=== PATIENT | female | born 1980 | race Caucasian/White ===

== ENCOUNTER 2017-12-06 17:52 | Outpatient (REF) | payer OTHER, SELFPAY ==
[2017-12-06 23:25] LABS: ALT 20 U/L (12-78); AST 20 U/L (15-37); Albumin 3.4 g/dL (3.4-5.0); Alkaline Phosphatase 94 U/L (46-116); Anion Gap 5.6 mmol/L (3-11); BUN 10 mg/dL (7-18); Bilirubin, Total 0.4 mg/dL (0.2-1.0); CO2 26.4 mmol/L (21.0-32.0); CREATININE 0.65 mg/dL (0.55-1.02); Calcium 8.8 mg/dL (8.5-10.1); Chloride 105 mmol/L (98-107); Glucose 76 mg/dL (70-100); Potassium 4.1 mmol/L (3.5-5.1); Sodium 137 mmol/L (136-145); Total Protein 6.6 g/dL (6.4-8.2)
== END 2017-12-06 18:12 ==
LOC: NCHCN 17:52
PROVIDERS: PCP Nurse Practitioner; Visit Provider Nurse Practitioner
DX: M25.40 Effusion, unspecified joint (principal); E63.9 Nutritional deficiency, unspecified
CPT/HCPCS: 80053

== ENCOUNTER 2017-12-23 00:35 | Outpatient (CLI) | payer OTHER, SELFPAY ==
--- NOTE | 2017-12-23 08:10 | DI.RAD_ITS ---
SYMPTOM/DIAGNOSIS: LT KNEE PAIN, M25.562 LEFT KNEE: Three views. No priors. There are post surgical changes of a prior ACL repair. No acute fracture or dislocation is seen. The articular surfaces appear well maintained. The bones are intact. The soft tissues are unremarkable. IMPRESSION: Status post ACL repair. No acute abnormality.
== END 2017-12-23 00:55 ==
PROVIDERS: PCP Nurse Practitioner; Visit Provider Nurse Practitioner
DX: M25.562 Pain in left knee (principal); Z98.890 Other specified postprocedural states
CPT/HCPCS: 73562

== ENCOUNTER 2018-02-21 01:34 | Outpatient (CLI) | payer OTHER, SELFPAY ==
--- NOTE | 2018-02-21 09:28 | DI.RAD_ITS ---
SYMPTOMS/DIAGNOSIS: INFLAMMATORY ARTHRITIS, M19.90; PAIN IN BOTH HANDS, M79.641 ; PAIN IN BOTH WRISTS, M25.531, M25.532; PAIN IN BOTH FEET, M79.671, M79.672; BURSITIS IN BOTH HIPS, M70.71, M70.72;;, ACUTE BILATERAL LOW BACK PAIN WITHOUT SCIATICA, M54.5; BILATERAL HIP AND BACK PAIN ARTHRITIS SERIES: HANDS: The bony structures are normally mineralized. The joint spaces are intact. There are no periarticular erosions or soft tissue calcifications. There is no evidence of inflammatory joint disease. LEFT FOOT: No significant bony or joint abnormality is demonstrated and there are no findings to suggest inflammatory joint disease. Correlation with the patient's clinical status and appropriate laboratory tests is suggested. RIGHT FOOT: There is an ununited apophysis at the base of the 5th metatarsal. Minimal degenerative changes involving the interphalangeal joints are noted. The bony structures are normally mineralized. No acute abnormality is seen. SUMMARY: No specific findings to suggest inflammatory joint disease. SI JOINTS: Note is made of a partial lumbarization of L5. There are degenerative changes involving the SI joints, particularly on the right side. There is otherwise no evident bony abnormality involving the pelvis. The hips as visualized also appear intact. LUMBOSACRAL SPINE: The vertebral bodies are intact. Note is made of severe degenerative bony changes and a narrowed vacuum disc at L5-S1 and a grade 2 spondylolisthesis is identified at this level. The disc spaces appear otherwise intact. The posterior elements are intact. The sacrum and sacroiliac joints are intact save for mild SI joint degenerative changes. SUMMARY: There is a grade 2 L5 on S1 spondylolisthesis and narrowed vacuum disc at L5-S1. Please see the above discussion.
--- NOTE | 2018-02-21 09:45 | DI.RAD_ITS ---
SYMPTOMS/DIAGNOSIS: INFLAMMATORY ARTHRITIS, M19.90, BURSITIS OF BOTH HIPS, M70.71, M70.72, BILATERAL HIP AND BACK PAIN BOTH HIPS AND PELVIS: Three views were obtained. Minimal acetabular spurring noted bilaterally. Cartilaginous joint spaces are well maintained. No other significant bony abnormality seen. CONCLUSION: Mild DJD, both hips.
== END 2018-02-21 01:54 ==
PROVIDERS: PCP Nurse Practitioner; Visit Provider Internal Medicine
DX: M19.90 Unspecified osteoarthritis, unspecified site (principal); M79.641 Pain in right hand; M79.642 Pain in left hand; M25.531 Pain in right wrist; M25.532 Pain in left wrist; M79.671 Pain in right foot; M79.672 Pain in left foot; M70.71 Other bursitis of hip, right hip; M70.72 Other bursitis of hip, left hip; M54.5 Low back pain; M25.551 Pain in right hip; M25.552 Pain in left hip; M53.3 Sacrococcygeal disorders, not elsewhere classified; M43.17 Spondylolisthesis, lumbosacral region
CPT/HCPCS: 36415; 73521; 80053; 82306; 85652; 86147; 86200; 86706; 86803; 86812; 87116; 87340; 87491; 87591; 72110; 72202; 73120; 73630; 82595; 82607; 82728; 84443; 84550; 85025; 86140; 86160; 86162; 86431; 86618

== ENCOUNTER 2018-02-22 13:05 | Outpatient (CLI) | payer OTHER, SELFPAY ==
[2018-02-22 14:27] LABS: Abs Immature Grans 0.05 k/cumm (0.0-0.09); Absolute Lymphocyte Count 1.97 k/cumm (1.2-3.4); Absolute Monocyte Count 1.17 k/cumm (0.11-0.7); Basophils % 0.6; Eosinophils % 1.7; HCT 47.1 % (36.0-46.0); HGB 16.1 g/dL (12.0-15.5); Immature Grans % 0.5; Lymphocytes % 18.1; Mean Corp. HGB Concentration 34.2 g/dL (32.0-36.0); Mean Corpuscular Hemoglobin 33.2 pg (27.0-33.0); Mean Corpuscular Volume 97.1 fL (80-95); Mean Platelet Volume 11.1 fL (8.0-11.0); Monocytes % 10.8; Neutrophils % 68.3; Platelet Count 334 x1000/uL (130-400); RBC 4.85 m/cumm (4.00-5.20); RBC Distribution Width 13.1 % (11.7-14.6); White Blood Cell Count 10.87 k/cumm (4.4-10.8)
[2018-02-22 14:28] LABS: Absolute Basophil Count 0.07 k/cumm (0.0-0.2); Absolute Eosinophil Count 0.18 k/cumm (0.0-0.7); Absolute Neutrophil Count 7.42 k/cumm (1.2-6.7)
[2018-02-22 15:04] LABS: ESR 8 MM/HR (0-20)
[2018-02-22 15:53] LABS: ALT 21 U/L (12-78); AST 18 U/L (15-37); Alkaline Phosphatase 85 U/L (46-116); Anion Gap 9.4 mmol/L (3-11); BUN 6 mg/dL (7-18); Bilirubin, Total 0.5 mg/dL (0.2-1.0); C-Reactive Protein 1.16 mg/dL (0.0-0.3); CO2 27.6 mmol/L (21.0-32.0); CREATININE 0.67 mg/dL (0.55-1.02); Chloride 100 mmol/L (98-107); Glucose 78 mg/dL (70-100); Potassium 3.4 mmol/L (3.5-5.1); Sodium 137 mmol/L (136-145); Total Protein 6.2 g/dL (6.4-8.2); Uric Acid 5.8 mg/dL (2.6-6.0)
[2018-02-22 16:32] LABS: Ferritin 80 ng/mL (8-388); Vitamin B12 649 pg/mL (193-986)
[2018-02-23 05:07] LABS: Vitamin D 25 Total 12.2 ng/ml (30-100)
[2018-02-23 12:20] LABS: Hepatitis C Ab w Rflx HCV PCR Negative (NEGAT)
[2018-02-24 09:55] LABS: HBs Antibody, Quant <3.1 mIU/mL; Hepatitis B Surface Ab Negative
[2018-02-24 10:02] LABS: Hepatitis B Surface Ag Negative (NEGAT)
[2018-02-24 10:46] LABS: Rheumatoid Factor 33 IU/mL (<12.5)
[2018-02-24 10:52] LABS: C3 Complement 107 mg/dL (81-157); C4 Complement 20 mg/dL (13-39)
[2018-02-24 10:54] LABS: Cyclic Citrullinated Peptide >200.0 U/mL (<5.0)
[2018-02-24 11:28] LABS: Lyme Ab w Rflx to Lyme Confirm Negative
[2018-02-24 12:03] LABS: Complement, Total 53 U/mL (30 - 75)
[2018-02-24 14:49] LABS: Chlamydia Result Negative; GC Result Negative; Specimen Description URINE
[2018-02-24 16:41] LABS: Dilute Russell Viper Venom 34.6 secs (27.2-36.9); LA Cascade Summary SEE COMMENTS; Silica Clotting Time 42.6 sec (30.2-48.4)
[2018-02-24 16:56] LABS: HLA-B27 Result Negative
[2018-02-27 15:53] LABS: Cryoglobulin, S Negative %ppt (Negative)
== END 2018-02-22 13:25 ==
PROVIDERS: PCP Nurse Practitioner; Visit Provider Internal Medicine
DX: M25.562 Pain in left knee (principal); M19.90 Unspecified osteoarthritis, unspecified site; G89.29 Other chronic pain; M54.5 Low back pain; M79.641 Pain in right hand; M79.642 Pain in left hand; M79.671 Pain in right foot; M79.672 Pain in left foot; M25.531 Pain in right wrist; M25.532 Pain in left wrist; M70.71 Other bursitis of hip, right hip; M70.72 Other bursitis of hip, left hip
CPT/HCPCS: 36415; 80053; 82306; 85652; 86146; 86147; 86200; 86706; 86803; 86812; 87116; 87340; 87491; 87591; 82595; 82607; 82652; 82728; 84443; 84550; 85025; 86140; 86160; 86162; 86431; 86618

== ENCOUNTER 2018-02-27 01:33 | Outpatient (CLI) | payer OTHER, SELFPAY ==
--- NOTE | 2018-02-27 08:11 | DI.US_ITS ---
SYMPTOM/DIAGNOSIS: NAUSEA AND VOMITING, R11.2 ABDOMEN ULTRASOUND: The liver is normal in size and echogenicity. The gallbladder is unremarkable, without evidence of stones or wall thickening. The kidneys, spleen and aorta are unremarkable. The tail of the pancreas was not well visualized due to bowel gas. There is no ascites. IMPRESSION: Negative abdomen ultrasound.
== END 2018-02-27 01:53 ==
PROVIDERS: PCP Nurse Practitioner; Visit Provider Nurse Practitioner
DX: R11.2 Nausea with vomiting, unspecified (principal)
CPT/HCPCS: 76700

== ENCOUNTER 2018-03-16 16:36 | Outpatient (REF) | payer OTHER, SELFPAY ==
--- NOTE | 2018-03-16 13:45 | PAPFT_PTH ---
PATIENT: Carolina Cota LOC: [facility] U#:[id number] AGE/SX: 37/F ROOM: RE03/16/[address]: Shama Jacques : 1980 BED: DIS: 03/16/2018 SPEC #: [id number] RECD: 03/17/18 13:10 STATUS: KONRAD REQ #: [id number] JANICE: 03/16/18 13:[address]: Shama Jacques DEPT: [facility] Cytology RECD BY: Alanis Jacobs Tissues: 1 - CX/ENDOCX FOR PAP SMEARS Procedures: PAP THIN PREP/UVM Screening HPV DNA PROBE Comments: [id number]
== END 2018-03-16 16:56 ==
LOC: NCHCN 16:36
PROVIDERS: PCP Nurse Practitioner; Visit Provider Nurse Practitioner
DX: Z12.4 Encounter for screening for malignant neoplasm of cervix (principal); Z11.51 Encounter for screening for human papillomavirus (HPV)
CPT/HCPCS: 88142; 87624

== ENCOUNTER 2018-04-19 08:46 | Day surgery (SDC) | payer OTHER, SELFPAY ==
[2018-04-19 08:50] VITALS: BP 128/93; PULSE 104; RESP 16; TEMP 37; O2SAT 100
[2018-04-19] MEDS: Lactated Ringers 1,000 ML 30 ML IV (09:16)
--- NOTE | 2018-04-19 10:33 | BOWEL_PTH ---
PATIENT: Carolina Cota LOC: [facility] U#:[id number] AGE/SX: 37/F ROOM: RE04/19/[address]: Gonzalez Drake III : 1980 BED: DIS: 04/19/2018 SPEC #: [id number] RECD: 04/19/18 12:39 STATUS: KONRAD RELinda #: [id number] JANICE: 04/19/18 10:[address]: Gonzalez Drake III DEPT: Surgical Specimen RECD BY: Alanis Jacobs ENTERED: 04/19/18 12:41 SP TYPE: Bowel OTHR DR: Shama Jacques Tissues: 1 - STOMACH BIOPSY 2 - BIOPSY BOWEL 3 - ESOPHAGUS BIOPSY 4 - BIOPSY BOWEL Procedures: GROSS AND MICRO LEVEL 4 Comments: [id number]
--- NOTE | 2018-04-19 11:35 | ENDO_ITS ---
Date of service: 04/19/18 Time of Service: 11:35 Operative Note DATE OF PROCEDURE: 04/19/18 PRE-OP DIAGNOSIS: vomiting daily, A Screening colonoscopy POST-OP DIAGNOSIS: same PROCEDURE: upper EGD with biopsy, Colonoscopy with snare polypectomy SURGEON: Gonzalez Drake III ANESTHESIA: MAC PATHOLOGY: other (3 on upper, GE junction, pre-pyloris, 1st portion of duodenum), sigmoid polyp COMPLICATIONS: Other (c-scope wasnt able to advance past 70cm in the transverse colon and aborted case) Patient was transported to: PACU Patient's condition: stable Indications: persistant vomiting Procedure Description: After informed consent was obtained the patient was take to the procedure room and placed in a supine position. Monitors were applied and a time out was done. The patients name, date of , procedure type, allergies to medications and metal in their body was reviewed. A bite block was placed and the patient was sedated. Once sedated and comfortable the gastroscope was advanced through the oropharynx which was grossly normal into the esophagus. The proximal and mid-esophagus were clean. In the distal esophagus there was transition zone noted. The scope was advanced into the stomach and through the pylorus into the 3rd portion of the duodenum. The duodenum was entered and had a nodule biopsied. Biopsies were done x3. The scope was retracted back into the stomach and biopsies were done to rule out H. pylori. There were no ulcers. The scope was retroflexed. The cardia and fundus were noted to be normal. There was no hiatal hernia noted. The scope was retracted back into the esophagus and biopsies were done of the GE junction to rule out Roldan's. The Z line was regular. The scope was removed and the patient was woken up and taken back to the day surgery unit in stable condition. Follow up: 2weeks After informed consent was obtained the patient was taken to the procedure room and placed in a left decubitous position. Monitors were applied and a time out was done. The patients name, date of , procedure, allergies to medications and metal in their body was reviewed. The patient was then sedated. Once sedated and comfortable a rectal exam was done. External exam was normal. Internal exam revealed a normal sphincter tone and no palpable masses. The scope was then introduced and retrofelexed. No internal hemorrhoids were identified. The scope was then advanced with severe difficulty and could not advance past 70cm. The prep was adequate with alot of mucus. The scope was then slowly retracted over 6 minutes back into the rectum. A polyp was removed at sigmoid with snare. The scope was removed and the patient was woken up and taken back to Same day surgery in stable condition. The patient tolerated the procedure well and there were no immediate complications. Follow up: The patient should follow up in 2weeks unless she should develop changes in bowel habits or other new gastrointestinal complaints.
--- NOTE | 2018-04-19 11:42 | ROE_ITS ---
Date of service: 04/19/18 Time of Service: 11:35 Operative Note DATE OF PROCEDURE: 04/19/18 PRE-OP DIAGNOSIS: vomiting daily POST-OP DIAGNOSIS: same PROCEDURE: upper EGD, Colonoscopy SURGEON: Gonzalez Drake III ANESTHESIA: MAC PATHOLOGY: other (3 on upper, GE junction, pre-pyloris, 1st portion of duodenum) COMPLICATIONS: Other (c-scope wasnt able to advance past 70cm in the transverse colon and aborted case) Patient was transported to: PACU Patient's condition: stable Indications: persistant vomiting Procedure Description: After informed consent was obtained the patient was take to the procedure room and placed in a supine position. Monitors were applied and a time out was done. The patients name, date of , procedure type, allergies to medications and metal in their body was reviewed. A bite block was placed and the patient was sedated. Once sedated and comfortable the gastroscope was advanced through the oropharynx which was grossly normal into the esophagus. The proximal and mid-esophagus were clean. In the distal esophagus there was transition zone noted. The scope was advanced into the stomach and through the pylorus into the 3rd portion of the duodenum. The duodenum was noted and had a nodule biopsied. Biopsies were done x3. The scope was retracted back into the stomach and biopsies were done to rule out H. pylori. There were no ulcers. The scope was retroflexed. The cardia and fundus were noted to be normal. There was no hiatal hernia noted. The scope was retracted back into the esophagus and biopsies were done of the GE junction to rule out Roldan's. The Z line was regular. The scope was removed and the patient was woken up and taken back to [facility] in stable condition. Follow up: 2weeks After informed consent was obtained the patient was taken to the procedure room and placed in a left decubitous position. Monitors were applied and a time out was done. The patients name, date of , procedure, allergies to medications and metal in their body was reviewed. The patient was then sedated. Once sedated and comfortable a rectal exam was done. External exam was normal. Internal exam revealed a normal sphincter tone and no palpable masses. The scope was then introduced and retrofelexed. no internal hemorrhoids were identified. The scope was then advanced to the cecum severe difficulty and could not advance past 70cm. The prep was adequate with alot of mucus. The scope was then slowly retracted over 6 minutes back into the rectum. A polyp were removed at sigmoid. The scope was removed and the patient was woken up and taken back to Same day surgery in stable condition. The patient tolerated the procedure well and there were no immediate complications. Follow up: The patient should follow up in 2weeks unless they develop changes in bowel habits or other new gastrointestinal complaints.
--- NOTE | 2018-04-19 11:42 | W.PM.DSUDISC ---
Discharge Plan Disposition Patient Disposition: HOME Condition: Stable Discharge Details Reason For Visit: vomiting Attending Provider: Gonzalez Drake III Primary Care Provider: Shama Jacques Home Meds and New Rx's Prescriptions: Continued sertraline 50 MG tablet 50 mg PO DAILY RF: 0 cyproheptadine 4 MG tablet 4 mg PO BID Qty: 60 RF: 3 ondansetron HCl [Zofran] 4 mg Tablet 4 mg PO TID PRNRF: 0 Discharge Instructions Referrals: Gonzalez Drake III, [OSTEOPATHIC DOCTOR] - Activity:: Activity as Tolerated Diet:: As Tolerated Discharge Orders Discharge Orders: Discharge Order (Routine); Ordered 04/19/18 Ordered By: Gonzalez Drake III DS: Diagnosis Discharge Diagnosis (1) Nausea and vomiting: Status: Acute
[2018-04-19 12:15] VITALS: BP 111/78; PULSE 77; RESP 16; TEMP 36.5; O2SAT 100
== END 2018-04-19 12:55 | disposition home or self-care (01) ==
PROVIDERS: PCP Nurse Practitioner; Visit Provider Surgery
PROC: (CPT 45385; principal; 2018-04-19 10:15)
DX: R11.10 Vomiting, unspecified (principal); Z12.11 Encounter for screening for malignant neoplasm of colon; K31.89 Other diseases of stomach and duodenum; K29.80 Duodenitis without bleeding; K21.0 Gastro-esophageal reflux disease with esophagitis; D12.5 Benign neoplasm of sigmoid colon; R19.4 Change in bowel habit
CPT/HCPCS: 45385; 43239; 81025; 88305; J2250; J3010

== ENCOUNTER 2018-05-10 17:39 | Outpatient (REF) | payer OTHER, SELFPAY ==
[2018-05-12 14:39] LABS: ANA Interpretation Positive (NEGAT); ANA Titer Pattern 1:160 Speckled
== END 2018-05-10 17:59 ==
LOC: NCHCN 17:39
PROVIDERS: PCP Nurse Practitioner; Visit Provider Nurse Practitioner
DX: R21 Rash and other nonspecific skin eruption (principal)
CPT/HCPCS: 86038

== ENCOUNTER 2018-06-02 14:08 | Outpatient (CLI) | payer OTHER, SELFPAY ==
[2018-06-02 21:21] LABS: Abs Immature Grans 0.02 k/cumm (0.0-0.09); Absolute Basophil Count 0.02 k/cumm (0.0-0.2); Absolute Eosinophil Count 0.02 k/cumm (0.0-0.7); Absolute Lymphocyte Count 0.68 k/cumm (1.2-3.4); Absolute Monocyte Count 0.58 k/cumm (0.11-0.7); Absolute Neutrophil Count 8.91 k/cumm (1.2-6.7); Basophils % 0.2; Eosinophils % 0.2; HCT 48.5 % (36.0-46.0); HGB 15.6 g/dL (12.0-15.5); Immature Grans % 0.2; Lymphocytes % 6.6; Mean Corp. HGB Concentration 32.2 g/dL (32.0-36.0); Mean Corpuscular Hemoglobin 30.8 pg (27.0-33.0); Mean Corpuscular Volume 95.8 fL (80-95); Mean Platelet Volume 11.7 fL (8.0-11.0); Monocytes % 5.7; Neutrophils % 87.1; Platelet Count 288 x1000/uL (130-400); RBC 5.06 m/cumm (4.00-5.20); RBC Distribution Width 14.5 % (11.7-14.6); White Blood Cell Count 10.23 k/cumm (4.4-10.8)
[2018-06-02 21:24] LABS: ALT 18 U/L (12-78); AST 17 U/L (15-37); Albumin 3.1 g/dL (3.4-5.0); Alkaline Phosphatase 94 U/L (46-116); Anion Gap 9.2 mmol/L (3-11); BUN 10 mg/dL (7-18); Bilirubin, Total 0.3 mg/dL (0.2-1.0); CO2 27.8 mmol/L (21.0-32.0); CREATININE 0.72 mg/dL (0.55-1.02); Calcium 9.2 mg/dL (8.5-10.1); Chloride 104 mmol/L (98-107); Glucose 140 mg/dL (70-100); Potassium 4.5 mmol/L (3.5-5.1); Sodium 141 mmol/L (136-145); Total Protein 6.6 g/dL (6.4-8.2)
[2018-06-05 11:32] LABS: C3 Complement 87 mg/dL (81-157); C4 Complement 13 mg/dL (13-39)
[2018-06-05 12:09] LABS: Lyme Ab w Rflx to Lyme Confirm Negative; Syphilis Serology (RPR) Negative (Negative)
[2018-06-05 14:42] LABS: Beta 2 Glycoprotein 1 Ab IgA <9.4 U/mL
[2018-06-06 19:22] LABS: LA Cascade Summary SEE COMMENTS
== END 2018-06-02 14:28 ==
PROVIDERS: PCP Nurse Practitioner; Visit Provider Internal Medicine
DX: R11.2 Nausea with vomiting, unspecified (principal); M19.90 Unspecified osteoarthritis, unspecified site; A69.23 Arthritis due to Lyme disease; R76.8 Other specified abnormal immunological findings in serum
CPT/HCPCS: 36415; 80053; 86146; 86147; 87116; 85025; 86160; 86592; 86618

== ENCOUNTER 2018-06-12 17:11 | Outpatient (REF) | payer OTHER, SELFPAY ==
[2018-06-12 21:53] LABS: Folate 9.1 ng/mL (8.6-20.0)
== END 2018-06-12 17:31 ==
LOC: NCHCN 17:11
PROVIDERS: PCP Nurse Practitioner; Visit Provider Nurse Practitioner
DX: D75.89 Other specified diseases of blood and blood-forming organs (principal); N39.0 Urinary tract infection, site not specified
CPT/HCPCS: 87077; 82746; 87086; 87186

== ENCOUNTER 2018-06-13 00:43 | Outpatient (CLI) | payer OTHER, SELFPAY ==
--- NOTE | 2018-06-13 09:15 | DI.MRI_ITS ---
SYMPTOM/DIAGNOSIS: WORSENING HEADACHES, DIZZINESS, R51, BLURRED VISION BOTH EYES BRAIN MRI: Routine noncontrast examination was performed. There are no priors for comparison. The examination was conducted according to the usual protocol. Review of the multi planar sequences reveals no signal abnormality involving the infra/supratentorial portions of the brain. The ventricles are normal and a normal flow void is noted in the carotid vessels. SUMMARY: Normal Brain MRI.
== END 2018-06-13 01:03 ==
PROVIDERS: PCP Nurse Practitioner; Visit Provider Nurse Practitioner Adult Health
DX: R51 Headache (principal); H53.8 Other visual disturbances; R42 Dizziness and giddiness
CPT/HCPCS: 70551

== ENCOUNTER 2018-06-23 00:53 | Outpatient (CLI) | payer OTHER, SELFPAY ==
[2018-06-23] MEDS: Breeza Beverage 473 ML BTL PO (11:09)
[2018-06-23] MEDS: Omnipaque 350 MG/ML 50 ML BTL PO (11:09)
[2018-06-23] MEDS: Omnipaque 350 MG/ML 100 ML BTL IJ (11:10)
--- NOTE | 2018-06-23 11:10 | DI.CT_ITS ---
SYMPTOMS/DIAGNOSIS: NAUSEA, VOMITING, R11.2 CT SCAN OF THE ABDOMEN AND PELVIS: CT scan of the abdomen and pelvis was performed following the uneventful administration of intravenous and oral contrast material. Comparison abdominal ultrasound is 02/27/18. The visualized lung bases are clear. The liver is normal in size. There are a few small round hypodense lesions likely reflecting cysts. No suspicious hepatic masses are seen. The portal, superior mesenteric and splenic veins are patent. The gallbladder is negative. There is no biliary ductal dilatation. The pancreas, spleen and adrenal glands are unremarkable. The kidneys show normal and symmetric enhancement. No evidence of a solid renal mass or obstruction. The urinary bladder is decompressed but intact. The reproductive organs are unremarkable. The aorta is of normal caliber. No aneurysmal dilatation is seen. No significant abdominal or pelvic adenopathy, ascites or pneumoperitoneum is seen. Within the colon, there is diffuse low density bowel wall thickening. No significant diverticular disease is seen. No evidence of bowel obstruction. There is a question of mild thickening of loops of the proximal small bowel. A normal appendix is present. No air is seen in the wall of the colon or in the mesenteric venous system. There is L 5 spondylolysis and grade II spondylolisthesis of L 5 on S 1. Marked degenerative changes are seen at L 5 - S 1 with a vacuum disc, endplate osteophytes and sclerosis. Subchondral cystic changes are also noted. IMPRESSION: Marked diffuse pancolonic bowel wall thickening. Differential considerations include inflammatory or an infectious colitis. Ischemic colitis is considered less likely as is neoplasm. Further evaluation with barium enema and/or colonoscopy should be considered.
== END 2018-06-23 01:13 ==
PROVIDERS: PCP Nurse Practitioner; Visit Provider Nurse Practitioner
DX: R11.2 Nausea with vomiting, unspecified (principal); K63.89 Other specified diseases of intestine
CPT/HCPCS: 74177; J3490; Q9967

== ENCOUNTER 2018-07-03 16:50 | Outpatient (REF) | payer OTHER, SELFPAY ==
[2018-07-05 11:35] LABS: Campylobacter PCR SEE COMMENTS; Salmonella PCR SEE COMMENTS; Shiga Toxin PCR SEE COMMENTS; Shigella/Enteroinvasive Ecoli SEE COMMENTS
[2018-07-05 15:00] LABS: Helicobacter pylori Ag, Feces Negative (NEGAT)
== END 2018-07-03 17:10 ==
LOC: NCHCN 16:50
PROVIDERS: PCP Nurse Practitioner; Visit Provider Nurse Practitioner
DX: K59.8 Other specified functional intestinal disorders (principal)
CPT/HCPCS: 87329; 87338; 87505; 87324

== ENCOUNTER 2018-07-21 11:36 | Outpatient (REF) | payer OTHER, SELFPAY ==
[2018-07-21 20:30] LABS: Glucose 87 mg/dL (70-100)
[2018-07-24 12:42] LABS: IgA 151 mg/dL (85-499); Interpretation SEE COMMENTS; Tissue Transglutaminase IgA <1.2 U/mL (<4.0)
== END 2018-07-21 11:56 ==
LOC: NCHCN 11:36
PROVIDERS: PCP Nurse Practitioner; Visit Provider Nurse Practitioner Family
DX: R19.8 Other specified symptoms and signs involving the digestive system and abdomen (principal); R11.2 Nausea with vomiting, unspecified; R73.9 Hyperglycemia, unspecified
CPT/HCPCS: 82784; 82947; 83516

== ENCOUNTER 2018-11-14 01:00 | Outpatient (CLI) | payer SELFPAY ==
[2018-11-14 09:25] LABS: Kit/Specimen SENT
== END 2018-11-14 01:20 ==
PROVIDERS: PCP Nurse Practitioner
DX: R69 Illness, unspecified (principal)

== ENCOUNTER 2019-06-01 13:25 | Outpatient (CLI) | payer BC, SELFPAY ==
--- NOTE | 2019-06-01 | DI.RAD_ITS ---
EXAM: XR HUMERUS LT INDICATION: IMPLANTABLE SUBDERMAL CONTRACEPTIVE DEVICE SURVEILLANCE, Z30.49. COMPARISON: No exams were available for comparison TECHNIQUE: 2D digital imaging was performed. FINDINGS: Contraceptive implant is seen in the anteromedial soft tissues of the arm. No bony abnormalities are seen. DATA REPOSITORY: RADIATION DOSE DELIVERED:
== END 2019-06-01 13:45 ==
PROVIDERS: PCP Nurse Practitioner Family; Visit Provider Nurse Practitioner Family
DX: Z30.49 Encounter for surveillance of other contraceptives (principal)
CPT/HCPCS: 73060

== ENCOUNTER 2019-12-19 04:04 | Outpatient (CLI) | payer BC, SELFPAY ==
[2019-12-19 14:55] LABS: Abs Immature Grans 0.12 10^3/uL (0.0-0.06); Absolute Basophil Count 0.06 10^3/uL (0.0-0.2); Absolute Eosinophil Count 0.13 10^3/uL (0.0-0.7); Absolute Lymphocyte Count 2.25 10^3/uL (1.2-3.4); Absolute Neutrophil Count 5.78 10^3/uL (1.2-6.7); Basophils % 0.6; Eosinophils % 1.4; HCT 44.9 % (36.0-46.0); HGB 15.4 g/dL (11.2-15.7); Immature Grans % 1.3; Lymphocytes % 24.4; MCH 38.3 pg (27.0-33.0); MCHC 34.3 % (32.0-36.0); MCV 111.7 fL (80-95); MPV 10.7 fL (8.0-11.0); Monocytes % 9.7; Neutrophils % 62.6; Nucleated RBC 0 %; Platelet Count 277 10^3/uL (130-400); RBC 4.02 10^6/uL (3.93-5.22); RDW 13.2 % (11.7-14.6); RDW-SD 54.4 fL; WBC 9.24 10^3/uL (4.4-10.8)
[2019-12-19 15:17] LABS: PTT Activated 22.8 sec (21.0-31.4)
[2019-12-19 15:33] LABS: Anion Gap 7.7 mmol/L (3-11); BUN 16 mg/dL (7-18); CO2 29.3 mmol/L (21.0-32.0); CREATININE 0.81 mg/dL (0.55-1.02); Chloride 99 mmol/L (98-107); Glucose 137 mg/dL (74-106); Potassium 4.5 mmol/L (3.5-5.1); Sodium 136 mmol/L (136-145)
[2019-12-19 15:35] LABS: Macrocytosis 2+; Stomatocytes 2+
[2019-12-21 13:52] LABS: Coag FactorVIII Activity Assay 138 % (55 - 200); von Willebrand Factor Activity 99 % (55 - 200); von Willebrand Factor Ag 125 % (55 - 200)
== END 2019-12-19 04:24 ==
PROVIDERS: PCP Nurse Practitioner Family; Visit Provider Nurse Practitioner Family
DX: R23.8 Other skin changes (principal); M06.9 Rheumatoid arthritis, unspecified
CPT/HCPCS: 36415; 80048; 85240; 85246; 85390; 85397; 85025; 85730

== ENCOUNTER 2020-03-13 03:51 | Outpatient (CLI) | payer BC, SELFPAY ==
--- NOTE | 2020-03-13 | DI.MRI_ITS ---
EXAM: MR LOWER JOINT LT WO CLINICAL HISTORY: JOINT LOCKING,M24.80,LT KNEE PAIN,M25.562 TECHNIQUE: Multiplanar multisequence MRI of the knee was performed. COMPARISON: CR XR knee LT 3V AP,lat,eva from 12/23/2017 MR MR brain wo from 06/13/2018 FINDINGS: There is artifact from acl hardware + a separate metallic fastener in the proximal posterior tibial m etaphysis, seen on recent x-rays. EFFUSION: There is a moderate-sized joint effusion.. No Gibson cyst MARROW:There is no evidence of fracture, bone contusion, nor osteochondral defects.. Signal abnormal ity in the tibial plateau metaphysis is related to the artifact produced by a indwelling ACL hardware . PATELLOFEMORAL COMPARTMENT: The quadriceps tendon is intact. The patellar ligament is intact. There is no significant thinning of the retropatellar cartilage. No evidence of fissure nor signific ant chondral defect. No osteochondral defect at this level.There is no intraosseous signal to sugges t recent patellar dislocation. There are no patellar retinacular tears. CRUCIATE LIGAMENTS: Anterior cruciate ligament graft exhibits full-thickness tear. This does not hav e acute appearance.The posterior cruciate ligament is intact. MEDIAL COMPARTMENT/MEDIAL MENISCUS: There are no tears of the medial meniscus evident.. There are no chondral defects, osteochondral defects, subarticular marrow edema, nor osteophytes evid ent. MEDIAL COLLATERAL LIGAMENT: Intact LATERAL COMPARTMENT/LATERAL MENISCUS: There is no evidence of lateral meniscal tear.There are no yaron dral defects, osteochondral defects, subarticular marrow edema, nor osteophytes evident. ILIOTIBIAL BAND: Intact LATERAL COLLATERAL LIGAMENT COMPLEX: The fibular collateral ligament is intact. The biceps femoris t endon is intact.Popliteus muscle and tendon are intact. IMPRESSION: 1. Main finding here is nonvisualization of the ACL graft consistent with high-grade tear. This may not be acute. 2. Posterior cruciate ligament is intact as are the collateral ligaments and iliotibial band. 3. There are no meniscal tears nor meniscal extrusion or intrusion. 4. Moderate-sized joint effusion. No obvious loose intra-articular body. No osteochondral defects e vident. DATA REPOSITORY:
== END 2020-03-13 04:11 ==
PROVIDERS: PCP Nurse Practitioner Family; Visit Provider Nurse Practitioner Family
DX: M23.52 Chronic instability of knee, left knee (principal); M23.8X2 Other internal derangements of left knee; M25.462 Effusion, left knee; T84.410A Breakdown (mechanical) of muscle and tendon graft, initial encounter
CPT/HCPCS: 73721

== ENCOUNTER 2020-11-25 05:10 | Outpatient (CLI) | payer BC, SELFPAY ==
[2020-11-25 15:54] LABS: Folate 3.4 ng/mL (8.6-20.0); Vitamin B12 351 pg/mL (193-986)
[2020-11-27 14:12] LABS: Erythropoietin 6.4 mIU/mL (2.6 - 18.5)
[2020-12-03 09:54] LABS: Misc Referral (DHMC) See Comments
== END 2020-11-25 05:11 | disposition home or self-care (01) ==
LOC: LBO 05:10
PROVIDERS: PCP Nurse Practitioner Family; Visit Provider Physician Assistant
DX: M06.9 Rheumatoid arthritis, unspecified (principal); Z51.81 Encounter for therapeutic drug level monitoring
CPT/HCPCS: 36415; 81270; 81450; 82668; 82607; 82746

== ENCOUNTER 2021-04-02 03:25 | Outpatient (CLI) | payer BC, SELFPAY ==
[2021-04-02 13:24] LABS: ESR 6 mm/hr (0-20)
[2021-04-02 13:25] LABS: Abs Immature Grans 0.02 10^3/uL (0.0-0.06); Absolute Basophil Count 0.06 10^3/uL (0.0-0.2); Absolute Lymphocyte Count 0.99 10^3/uL (1.2-3.4); Absolute Monocyte Count 0.55 10^3/uL (0.1-0.8); Absolute Neutrophil Count 3.59 10^3/uL (1.2-6.7); Basophils % 1.1; Eosinophils % 1.9; HCT 43.5 % (36.0-46.0); HGB 14.4 g/dL (11.2-15.7); Immature Grans % 0.4; Lymphocytes % 18.6; MCH 36.4 pg (27.0-33.0); MCHC 33.1 % (32.0-36.0); MCV 109.8 fL (80-95); MPV 11.1 fL (8.0-11.0); Monocytes % 10.4; Neutrophils % 67.6; Nucleated RBC 0 %; Platelet Count 185 10^3/uL (130-400); RBC 3.96 10^6/uL (3.93-5.22); RDW 12.2 % (11.7-14.6); RDW-SD 50.4 fL; WBC 5.31 10^3/uL (4.4-10.8)
[2021-04-02 13:59] LABS: Macrocytosis 1+
[2021-04-02 14:00] LABS: ALT 78 U/L (14-59); AST 279 U/L (15-37); Albumin 3.5 g/dL (3.4-5.0); Alkaline Phosphatase 97 U/L (46-116); Anion Gap 9.7 mmol/L (3-11); BUN 7 mg/dL (7-18); Bilirubin, Total 0.7 mg/dL (0.2-1.0); C-Reactive Protein 0.54 mg/dL (0.0-0.3); CO2 28.3 mmol/L (21.0-32.0); CREATININE 0.8 mg/dL (0.55-1.02); Calcium 8.9 mg/dL (8.5-10.1); Chloride 102 mmol/L (98-107); Glucose 82 mg/dL (74-106); Potassium 4.4 mmol/L (3.5-5.1); Sodium 140 mmol/L (136-145); Total Protein 6.9 g/dL (6.4-8.2)
== END 2021-04-02 03:26 | disposition home or self-care (01) ==
LOC: LBO 03:25
PROVIDERS: PCP Nurse Practitioner Family; Visit Provider Physician Assistant
DX: Z51.81 Encounter for therapeutic drug level monitoring (principal)
CPT/HCPCS: 36415; 80053; 85652; 85025; 86140

== ENCOUNTER 2021-05-01 04:27 | Outpatient (CLI) | payer BC, SELFPAY ==
[2021-05-01 14:11] LABS: Abs Immature Grans 0.03 10^3/uL (0.0-0.06); Absolute Basophil Count 0.05 10^3/uL (0.0-0.2); Absolute Eosinophil Count 0.21 10^3/uL (0.0-0.7); Absolute Lymphocyte Count 1.93 10^3/uL (1.2-3.4); Absolute Monocyte Count 0.84 10^3/uL (0.1-0.8); Absolute Neutrophil Count 3.54 10^3/uL (1.2-6.7); Basophils % 0.8; Eosinophils % 3.2; HCT 48.4 % (36.0-46.0); Immature Grans % 0.5; Lymphocytes % 29.2; MCH 36.8 pg (27.0-33.0); MCHC 33.1 % (32.0-36.0); MCV 111.3 fL (80-95); MPV 10.7 fL (8.0-11.0); Monocytes % 12.7; Neutrophils % 53.6; Nucleated RBC 0 %; Platelet Count 202 10^3/uL (130-400); RBC 4.35 10^6/uL (3.93-5.22); RDW 12.2 % (11.7-14.6)
[2021-05-01 15:27] LABS: ALT 43 U/L (14-59); AST 79 U/L (15-37); Albumin 3.2 g/dL (3.4-5.0); Alkaline Phosphatase 106 U/L (46-116); Bilirubin, Direct 0.2 mg/dL (0.0-0.2); Bilirubin, Total 0.4 mg/dL (0.2-1.0)
== END 2021-05-01 04:28 | disposition home or self-care (01) ==
LOC: LBO 04:27
PROVIDERS: PCP Nurse Practitioner Family; Visit Provider Physician Assistant
DX: Z51.81 Encounter for therapeutic drug level monitoring (principal)
CPT/HCPCS: 36415; 80076; 85025

== ENCOUNTER 2023-03-16 16:45 | Outpatient (CLI) | payer BC, SELFPAY ==
[2023-03-16 13:25] LABS: Abs Immature Grans 0.05 10^3/uL (0.0-0.06); Absolute Basophil Count 0.07 10^3/uL (0.0-0.2); Absolute Eosinophil Count 0.15 10^3/uL (0.0-0.7); Absolute Lymphocyte Count 1.91 10^3/uL (1.2-3.4); Absolute Monocyte Count 0.92 10^3/uL (0.1-0.8); Absolute Neutrophil Count 6.62 10^3/uL (1.2-6.7); Basophils % 0.7; Eosinophils % 1.5; HCT 44.1 % (36.0-46.0); HGB 15.2 g/dL (11.2-15.7); Immature Grans % 0.5; Lymphocytes % 19.7; MCH 38.5 pg (27.0-33.0); MCHC 34.5 % (32.0-36.0); MCV 112 fL (80-95); MPV 10.3 fL (8.0-11.0); Monocytes % 9.5; Neutrophils % 68.1; Platelet Count 245 10^3/uL (130-400); RBC 3.95 10^6/uL (3.93-5.22); RDW 11.9 % (11.7-14.6); RDW-SD 49.8 fL; WBC 9.72 10^3/uL (4.4-10.8)
[2023-03-16 13:30] LABS: ESR 7 mm/hr (0-20)
[2023-03-16 13:44] LABS: Diff Comment RBC Morph Reviewed; Macrocytosis 1+
[2023-03-16 13:58] LABS: ALT 76 U/L (14-59); AST 228 U/L (15-37); Albumin 3.2 g/dL (3.4-5.0); Alkaline Phosphatase 106 U/L (46-116); Anion Gap 9.9 mmol/L (3-11); BUN 5 mg/dL (7-18); Bilirubin, Total 0.6 mg/dL (0.2-1.0); C-Reactive Protein 0.41 mg/dL (0.0-0.3); CO2 26.1 mmol/L (21.0-32.0); CREATININE 0.8 mg/dL (0.55-1.02); Calcium 8.8 mg/dL (8.5-10.1); Chloride 102 mmol/L (98-107); Estimated GFR 93.12 (mL/min/1.73m2); Glucose 87 mg/dL (74-106); Potassium 3.7 mmol/L (3.5-5.1); Sodium 138 mmol/L (136-145); Total Protein 7.3 g/dL (6.4-8.2)
== END 2023-03-16 16:46 | disposition home or self-care (01) ==
LOC: LBO 16:55
PROVIDERS: PCP Nurse Practitioner Family; Visit Provider Physician Assistant
DX: Z51.81 Encounter for therapeutic drug level monitoring (principal)
CPT/HCPCS: 36415; 80053; 85652; 85025; 86140

== ENCOUNTER 2023-08-09 10:50 | Outpatient (REF) | payer BC, SELFPAY ==
[2023-08-09 14:48] LABS: HCT 42.5 % (36.0-46.0); HGB 14.6 g/dL (11.2-15.7); MCH 39.2 pg (27.0-33.0); MCHC 34.4 % (32.0-36.0); MPV 11.7 fL (8.0-11.0); Platelet Count 210 10^3/uL (130-400); RBC 3.72 10^6/uL (3.93-5.22); RDW 12.5 % (11.7-14.6); WBC 6.44 10^3/uL (4.4-10.8)
[2023-08-09 15:12] LABS: ALT 73 U/L (14-59); AST 203 U/L (15-37); Albumin 3.5 g/dL (3.4-5.0); Alkaline Phosphatase 119 U/L (46-116); Anion Gap 9.5 mmol/L (3-11); BUN 6 mg/dL (7-18); Bilirubin, Total 0.7 mg/dL (0.2-1.0); CO2 28.5 mmol/L (21.0-32.0); CREATININE 0.6 mg/dL (0.55-1.02); Calcium 9.5 mg/dL (8.5-10.1); Chloride 104 mmol/L (98-107); Estimated GFR 112.73 (mL/min/1.73m2); Glucose 92 mg/dL (74-106); Potassium 4.4 mmol/L (3.5-5.1); Sodium 142 mmol/L (136-145); Total Protein 7.1 g/dL (6.4-8.2)
[2023-08-09 15:38] LABS: MCV 114 fL (80-95)
[2023-08-10 10:19] LABS: Hepatitis A Antibody IgM Negative (Negative); Hepatitis B Core Antibody Negative (Negative); Hepatitis B surface Ag Negative (Negative); Hepatitis C Ab w Rflx HCV PCR Negative (Negative)
== END 2023-08-09 10:51 | disposition home or self-care (01) ==
LOC: NCHCN 10:50
PROVIDERS: PCP Nurse Practitioner Family; Visit Provider Nurse Practitioner Family
DX: R74.01 Elevation of levels of liver transaminase levels (principal)
CPT/HCPCS: 80053; 85027; 86704; 86709; 86803; 87340

== ENCOUNTER 2023-11-02 15:05 | Outpatient (REF) | payer BC, SELFPAY ==
--- NOTE | 2023-11-02 12:25 | PAPFT_PTH ---
PATIENT: Carolina Cota LOC: [facility]#:[id number] AGE/SX: 43/F ROOM: RE11/02/[address]: Larisa Medley : 1980 BED: DIS: 11/02/2023 SPEC #: [id number] RECD: 11/02/23 18:06 STATUS: KONRAD REQ #: [id number] JANICE: 11/02/23 12:[address]: Larisa Medley DEPT: [facility] Cytology RECD BY: Alanis Jacobs Tissues: 1 - CX/ENDOCX FOR PAP SMEARS Procedures: PAP THIN PREP/UVM Screening HPV DNA PROBE Comments: [id number] (HPV 16 & 18/45) (CHLAMYDIA/GC)
[2023-11-02 21:26] LABS: ALT 95 U/L (14-59); AST 257 U/L (15-37); Albumin 3.5 g/dL (3.4-5.0); Anion Gap 6.6 mmol/L (3-11); BUN 4 mg/dL (7-18); CO2 30.4 mmol/L (21.0-32.0); CREATININE 0.7 mg/dL (0.55-1.02); Calcium 9.4 mg/dL (8.5-10.1); Calculated LDL 77 mg/dL (<100); Chloride 104 mmol/L (98-107); Cholesterol 212 mg/dL (<200); Estimated GFR 108.62 (mL/min/1.73m2); Glucose 91 mg/dL (74-106); HDL Cholesterol 121 mg/dL (40-60); Potassium 4.6 mmol/L (3.5-5.1); Sodium 141 mmol/L (136-145); Total Protein 7.2 g/dL (6.4-8.2); Triglyceride 70 mg/dL (<150)
[2023-11-02 21:52] LABS: Alkaline Phosphatase 112 U/L (46-116)
[2023-11-03 11:42] LABS: Chlamydia Result Negative (Negative); GC Result Negative (Negative)
== END 2023-11-02 15:06 | disposition home or self-care (01) ==
LOC: NCHCN 15:05
PROVIDERS: PCP Nurse Practitioner Family; Visit Provider Nurse Practitioner Family
DX: Z00.00 Encounter for general adult medical examination without abnormal findings (principal); R74.01 Elevation of levels of liver transaminase levels
CPT/HCPCS: 80053; 80061; 87491; 87591; 88142; 87624

== ENCOUNTER 2024-03-22 01:30 | Outpatient (CLI) | payer BC, SELFPAY ==
--- NOTE | 2024-03-22 | DI.RAD_ITS ---
Exam(s) XR HIP PELVIS ADULT BL EXAM: XR HIP PELVIS ADULT BL CLINICAL HISTORY: Pelvic and perineal pain, R10.2,iliac fossa pain. TECHNIQUE: 2D digital imaging was performed. COMPARISON: CR XR LUMBAR SPINE COMPLETE from 03/22/2024 FINDINGS: Five views No evidence of pelvic nor hip fractures. No hip joint space narrowing nor femoral head osteophytes e vident. Sacroiliac joints appear unremarkable. Abnormal findings at L5-S1 level noted. See separate report IMPRESSION: No significant osseous findings in the hips and iliac bones. See separate lumbar spine dictation for significant findings. DATA REPOSITORY: RADIATION DOSE DELIVERED:
--- NOTE | 2024-03-22 13:54 | DI.RAD_ITS ---
Exam(s) XR LUMBAR SPINE COMPLETE EXAM: XR LUMBAR SPINE COMPLETE CLINICAL HISTORY: LBP, M54.50. TECHNIQUE: 2D digital imaging was performed. COMPARISON: No exams were available for comparison FINDINGS: Five views The main findings here are at L5-S1 level. There is significant anterolisthesis of L5 upon S1 due to bilateral pars defects at L5 level. There is consequent 1.4 cm anterior slippage of L 5 upon S1. There is also advanced chronic disc space rachna rowing at this level. The other disc spaces all exhibit normal height and no listhesis nor prominent facet arthropathy. No osseous lesions. Sacroiliac joints appear unremarkable IMPRESSION: Significant anterolisthesis L5 upon S1 due to L5 pars defects as well as severe advanced disc space n arrowing at this level. There is most probably central spinal canal stenosis as well as bilateral fo raminal stenosis at this level. If clinically indicated can be further studied with MRI. DATA REPOSITORY: RADIATION DOSE DELIVERED:
== END 2024-03-22 01:50 ==
LOC: DI 01:30
PROVIDERS: PCP Nurse Practitioner Family; Visit Provider Nurse Practitioner Family
DX: M48.062 Spinal stenosis, lumbar region with neurogenic claudication (principal)
CPT/HCPCS: 73521; 72110

== ENCOUNTER 2024-04-26 03:14 | Outpatient (CLI) | payer BC, SELFPAY ==
--- NOTE | 2024-04-26 | DI.MRI_ITS ---
Exam(s) MR LUMBAR SPINE WO EXAM: MR LUMBAR SPINE WO CLINICAL HISTORY: M99.79 Connective tissue and disc stenosis of intervertebral foramina. TECHNIQUE: Multiplanar multisequence MRI of the Lumbar spine was performed. COMPARISON: CT CT ABDOMEN PELVIS W from 06/23/2018 CR XR LUMBAR SPINE COMPLETE from 03/22/2024 FINDINGS: Conus medullaris is at L1 level. There is no evidence of conus mass nor subjacent clumping of intrat hecal nerve roots to suggest arachnoiditis. The distal thecal sac which is at lower S2 level appears unremarkable.There is no evidence of Tarlov intrasacral cysts nor other significant findings within the sacral canal Bones:There are no fractures nor ominous osseous lesions in the lumbar vertebral bodies and visualize d sacrum. There is again noted significant anterolisthesis of L5 upon S1 due to bilateral pars defec ts at L5 level, and with approximately 1.4 cm anterior slippage of L5 upon S1, seen on prior abdomina l CT scan of 2019 With respect to the individual levels... T12-L1: Unremarkable L1-2: Normal disc height and signal. No disc herniation nor central canal stenosis.No foraminal steno sis L2-3: Normal disc height. No disc herniation nor central canal stenosis.No foraminal stenosis.No face t arthropathy. L3-4: Normal disc height. No disc herniation or central canal stenosis.No foraminal stenosis.No face t arthropathy. L4-5: There is preserved disc height at this level. Posteriorly there is signal abnormality in the s ubligamentous central annulus consistent with annular tear and there is a small central subligamentou s disc protrusion at this level. This contacts but does not significantly impress the anterior theca l sac. There is no disc herniation evident posterolaterally nor within the exiting neural foramina w hich are patent bilaterally at this level. Facet joints at this level appear unremarkable. L5-S1: This level again exhibits 1.4 cm anterolisthesis of L5 upon S1 due to bilateral pars defects a nd there is also again noted severe disc space narrowing at this level. There is no distinct disc he rniation at this level although the typical pseudo herniation of the annulus is evident, as always se en with listhesis. The AP dimension of the central canal is significantly increased by listhesis. T he main finding here is at the level of the bilateral exiting neural foramina. The lateral recesses are carried forward by the slippage, and this, together with the significant height loss due to the d isc desiccation is resulting in severe compression of the exiting nerve roots bilaterally between the overlying L5 pedicles and the subjacent thinned annulus and posterior aspect of S1 vertebral body. In addition, there are Modic type 1 marrow edema changes in both L5 and S1 vertebral bodies which may imply that there is on going dynamic pathology here. In addition, there is a thin T1 hypointense li ne through the mid aspect of the S1 vertebral body which probably represents a nondisplaced fracture. Indeed, the STIR bright edema in the S1 vertebral body is seen both above and below this abnormal h ypointense T1 line. Soft tissues: paraspinal soft tissues appear unremarkable. IMPRESSION: 1. Significant findings at L5-S1 level as described above, including chronic anterolisthesis L5 upon S1 due to bilateral pars defects at L5 level, with 1.5 cm anterior slippage L5 upon S1 and severe dim inution of the L5-S1 disc space. There is severe bilateral vertical foraminal stenosis at this level with very significant impingement of both bilateral exiting nerve roots at this level which are impi nged between the overlying L5 pedicles and the subjacent annulus. 2. There is also a suggestion of a subtle nondisplaced transverse fracture line in the S1 vertebral b sarabjit, as described above. 3. Milder findings at L4-5 level, as described above. DATA REPOSITORY:
== END 2024-04-26 03:34 ==
LOC: DI 03:14
PROVIDERS: PCP Nurse Practitioner Family; Visit Provider Nurse Practitioner Family
DX: M99.79 Connective tissue and disc stenosis of intervertebral foramina of abdomen and other regions (principal)
CPT/HCPCS: 72148

== ENCOUNTER 2024-05-09 13:39 | Outpatient (CLI) | payer BC, SELFPAY ==
--- NOTE | 2024-05-09 13:31 | DI.RAD_ITS ---
Exam(s) XR LUMBAR SPINE COMP W FLEX/EX EXAM: XR LUMBAR SPINE COMP W FLEX/EX CLINICAL HISTORY: Spondylolisthesis, lumbar region; M43.16; radiculopathy, M54.16; other LBP,. TECHNIQUE: 2D digital imaging was performed. Seven views. Additional lateral views in flexion and extension were performed recumbent COMPARISON: CR XR LUMBAR SPINE COMPLETE from 03/22/2024 FINDINGS: BONES: No acute fracture or destructive lesion. Vertebral body heights are maintained. Bilateral L 5 pars defects again noted. DISKS: Severe narrowing of the L5-S1 disc space and endplate sclerosis. Stable L5-S1 spondylolisth esis. No subluxation with flexion or extension. Intervertebral disc spaces are maintained. SOFT TISSUE: Normal. IMPRESSION: Stable appearance of L5-S1 spondylolisthesis and severe did degenerative disc changes. No subluxatio n with flexion or extension. DATA REPOSITORY: RADIATION DOSE DELIVERED:
== END 2024-05-09 13:59 ==
PROVIDERS: PCP Nurse Practitioner Family; Visit Provider Anesthesiology Pain Medicine
DX: M43.16 Spondylolisthesis, lumbar region (principal)
CPT/HCPCS: 72114

== ENCOUNTER 2024-05-23 11:56 | Outpatient (CLI) | payer BC, SELFPAY ==
--- NOTE | 2024-05-23 06:00 | DI.RAD_ITS ---
Exam(s) XR PAIN CLINIC LUMBAR SP 2V EXAM: XR PAIN CLINIC LUMBAR SP 2V CLINICAL HISTORY: Dx: Lumbar Radiculopathy TECHNIQUE: 2D and realtime digital imaging was performed. CONTRAST MATERIAL: Refer to procedure report. COMPARISON: No exams were available for comparison FINDINGS: Fluoroscopy was provided for Dr. Loepz during the performance of a lumbar epidural steroid injecti on. Please refer to the procedure report for complete details. Note is made grade 2 spondylolisthes is of L5 on S1. Ka,r=9.36 mGy IMPRESSION: RADIATION DOSE DELIVERED: 0.0 0.0 0
[2024-05-23 12:06] VITALS: BP 130/93; PULSE 78; RESP 18; TEMP 37; O2SAT 99
[2024-05-23 12:31] VITALS: PULSE 77; O2SAT 97
[2024-05-23 12:40] VITALS: PULSE 87; O2SAT 99
--- NOTE | 2024-05-23 12:45 | PDOC.PAIN ---
Date of service: 05/23/24 Time of Service: 13:04 Pain Managment Procedure Note Procedure Note Procedure Note: Lumbar Interlaminar Epidural Steroid Injection ? Location: L5-S1 ? Pre-procedure Diagnosis: M54.16- Radiculopathy, LUMBAR region ? Post-procedure Diagnosis:? The same as above ? Sedation:? ? None ? Medication: Depo-Medrol 80 mg, Omnipaque 1 mL ? Estimated blood loss:? less than 2 cc ? Surgeon:? Eladio Lopez MD COMMENT: Patient has significant spondylolisthesis L5-S1 and foraminal stenosis. On flexion-extension there is no movement- discussed this with patient. I was originally going to do a caudal approach but decided to proceed with interlaminar at L5-S1 as space was easily visualized and thecal sac was at the lower S2 level. ? Procedure Detail:? The procedure and potential risks were explained to the patient and informed written consent was obtained. The patient was escorted to the procedure room and placed in the prone position. Pillows were utilized for proper positioning and comfort. Time out was performed in the procedure room with nursing staff confirming the patient's identity, procedure to be performed, allergies, and any blood thinning or anti-platelet medications.? The patient's neck and upper back was prepped with ChloraPrep and draped in a sterile fashion. Sterile technique was maintained throughout the procedure.? Sterile gloves were used, a face mask was worn, and new single dose vials of all medications were used with the top being swabbed with alcohol and given time to dry prior to withdrawal of medication. Lidocane 1% was used to anesthetize the skin.Using a 25-gauge 1.5 inch needle, 1% lidocaine was instilled into the superficial soft tissue overlying the targeted area to provide local anesthesia. With fluoroscopic guidance, a 17 -gauge Tuohy needle was advanced toward the interlaminar space of L5-S1. The needle was then advance through the ligamentum flavum and into the posterior epidural space using the loss of resistance technique. Correct needle placement was confirmed through review of the AP and contralateral oblique fluoroscopic views. A 19-gauge arrow catheter was threaded cephalad to the Right Following negative aspiration, one cc of Omnipaque 240 contrast was injected which confirmed good flow throughout the epidural space and no evidence of vascular flow or flow into adjacent compartments. Next, following negative aspiration, 1 cc's of normal saline and 80mg of Depo-Medrol was injected. The needle was gently removed. The patient tolerated the procedure well and was transported to the recovery area for observation and discharge instructions. Permanent images saved and recorded. PAIN PRE-PROCEDURE 08/11 POST-PROCEDURE 06/11 Plan:? Follow up prn. COMMENT: Would consider repeating or consider bilateral L5 transforaminal. Also consider surgical evaluation if symptoms not improving.
[2024-05-23] MEDS: Omnipaque 240 MG/ML 50 ML BTL IJ (12:46)
[2024-05-23] MEDS: methylPREDNISolone ACETATE 40 MG/ML VIAL IJ (12:47)
[2024-05-23] MEDS: Nerve Block Tray 1 EACH MC (12:47)
== END 2024-05-23 11:57 | disposition home or self-care (01) ==
LOC: PC 11:56
PROVIDERS: PCP Nurse Practitioner Family; Visit Provider Anesthesiology Pain Medicine
DX: M54.16 Radiculopathy, lumbar region (principal)
CPT/HCPCS: 00123; 62323; 72100; J1010; Q9967

== ENCOUNTER 2024-06-08 00:32 | Outpatient (CLI) | payer BC, SELFPAY ==
--- NOTE | 2024-06-08 | DI.RAD_ITS ---
Exam(s) XR ARTHRITIS SERIES EXAM: XR ARTHRITIS SERIES CLINICAL HISTORY: BILAT HAND PAIN,EVALUATE FOR ARTHRITIS. TECHNIQUE: 2D digital imaging was performed. Two views of both hands. COMPARISON: No exams were available for comparison FINDINGS: BONES: No acute fracture is present. No erosive or productive bony lesions are seen. JOINTS: No dislocation present. The interphalangeal joint and metacarpophalangeal spaces are maint ained. There are degenerative changes in the left wrist, with narrowing of the capitate lunate joint space is well as radial carpal joint space. SOFT TISSUE: Normal. IMPRESSION: Degenerative changes in the left wrist. No erosive or productive changes. DATA REPOSITORY: RADIATION DOSE DELIVERED:
--- NOTE | 2024-06-08 | DI.RAD_ITS ---
Exam(s) XR CERVICAL SPINE COMP 4-5V EXAM: XR CERVICAL SPINE COMP 4-5V CLINICAL HISTORY: NECK PAIN,? ARTHRITIS,HAS RA. TECHNIQUE: 2D digital imaging was performed. Five views were performed. COMPARISON: No exams were available for comparison FINDINGS: BONES: No fracture or destructive lesion. There are facet degenerative changes throughout. There is mild bilateral neural foraminal narrowing. DISKS: There is severe narrowing of the C 3 4 through C6-7 disc spaces. There are prominent endplate osteophytes. ALIGNMENT: There is degenerative straightening of the normal cervical lordosis. The odontoid and matti antoaxial articulations are normal. SOFT TISSUE: Normal. The lung apices are clear. IMPRESSION: Advanced degenerative disc changes. Mild bilateral neural foraminal narrowing. DATA REPOSITORY: RADIATION DOSE DELIVERED:
== END 2024-06-08 00:52 ==
LOC: DI 00:32
PROVIDERS: PCP Nurse Practitioner Family; Visit Provider Internal Medicine Rheumatology
DX: M19.032 Primary osteoarthritis, left wrist (principal); M50.123 Cervical disc disorder at C6-C7 level with radiculopathy; M99.61 Osseous and subluxation stenosis of intervertebral foramina of cervical region
CPT/HCPCS: 72050; 73120

== ENCOUNTER 2024-07-04 12:40 | Outpatient (CLI) | payer BC, SELFPAY ==
[2024-07-04 13:41] LABS: Folate 2.8 ng/mL (8.6-20.0); TSH (W/Ref FT4) 1.35 uIU/mL (0.36-3.74); Vitamin B12 319 pg/mL (193-986)
[2024-07-05 14:46] LABS: Ceruloplasmin 21.8 mg/dL
[2024-07-06 12:49] LABS: Copper, Serum 86 mcg/dL (77-206)
== END 2024-07-04 12:41 | disposition home or self-care (01) ==
LOC: LBO 12:41
PROVIDERS: PCP Nurse Practitioner Family; Visit Provider Nurse Practitioner Family
DX: R25.1 Tremor, unspecified (principal); D75.89 Other specified diseases of blood and blood-forming organs
CPT/HCPCS: 36415; 82390; 82525; 82607; 82746; 84443

== ENCOUNTER 2024-08-23 08:53 | Outpatient (CLI) | payer BC, SELFPAY ==
[2024-08-23] VITALS (7 sets, daily range): BP systolic 126–155; BP diastolic 92–117; PULSE 76–116; RESP 10–22; TEMP 36.6; O2SAT 94–99
[2024-08-23] MEDS: Omnipaque 240 MG/ML 50 ML BTL IJ (09:43)
[2024-08-23] MEDS: Nerve Block Tray 1 EACH MC (09:44)
[2024-08-23] MEDS: Dexamethasone Sod. Phos./Pres-Free 10 MG/ML VIAL IJ (09:44)
--- NOTE | 2024-08-23 09:48 | DI.RAD_ITS ---
Exam(s) XR PAIN CLINIC LUMBAR SP 2V EXAM: XR PAIN CLINIC LUMBAR SP 2V CLINICAL HISTORY: DX: Lumbar Radiculopathy. TECHNIQUE: Fluoroscopy was provided for the referring physician for guidance with performing pain cl inic injection procedure. COMPARISON: No exams were available for comparison FINDINGS: Please see procedure note for details. Fluoro time: 65.8 seconds RADIATION DOSE DELIVERED: Ka,r=20.6 mGy
--- NOTE | 2024-08-23 11:08 | PDOC.PAIN ---
Date of service: 08/23/24 Time of Service: 10:00 Pain Managment Procedure Note Procedure Note Procedure Note: LUMBAR / SACRAL TRANSFORAMINAL INJECTION Carolina Cota has been referred to the [facility] for a transforaminal nerve root block and steroid injection. COMMENTS: She was previously seen by Dr. Lopez and had a Caudal KEVIN with 2 months of >50% pain relief. Dr. oLpez wanted to try a different approach - bilateral L5 transforaminal epidural steroid injection. I did discuss this with the patient today. Pre-procedure pain VAS was 6/10. Patient was interviewed and the medical record reviewed. There were no medical, pharmacologic, radiographic or other structural contraindications to attempting fluoroscopically guided transforaminal nerve root block and epidural steroid injection. Risks and expected side effects as well as potential benefit of the procedure were reviewed and voiced concerns addressed. The printed consent form was signed and witnessed. Standard time-out procedure was performed. Patient was placed in the prone position on the fluoroscopy table and automated blood pressure cuff and pulse oximeter applied. Fluoroscopy was utilized to identify the right L5 neural foramen between L4 and L5. A skin wes was made for the needle insertion site. A Chlorhexadine prep was carried out, and sterile drapes were applied. Local anesthesia was achieved in the skin and subcutaneous tissues. A 22 gauge curved tip spinal needle was then inserted, advanced with fluoroscopic guidance into the neural foramen, confirmed on the lateral view. After negative aspiration, 2 ml of Omnipaque 240 was injected confirming position in A/P and lateral views. This showed a good spread of dye transforaminally into the epidural space. There was no vascular update with contrast injection under continuous fluoroscopy and digital substraction. 7 mg of Dexamethasone was injected, followed by 0.5 ml of 1% Xylocaine flush for the nerve root block, as well. There was no unusual discomfort expressed.The needle was withdrawn. The exact procedure was then completed at the left L5. The patient tolerated the procedure well. A Band-Aid was applied. Vital signs were stable throughout the procedure and were as recorded in nursing records. If given, dosages of intravenous drugs for anxiolysis and analgesia were documented in nursing records. Follow up plans and appointments were discussed. Post procedure instruction was given as documented in nursing records and patient was discharged in the care of an identified bulk tank driver. COMMENTS: Post-procedure pain VAS was 4/10. Alex Gomez DO, MPH ABPMR-Pain Management [facility] CC: Larisa Medley Coding Conscious Sedation used for procedure: No CPT Codes: Transforaminal Lumbar/Sacral (includes fluoro) *BILATERAL* - [id number] ([id number]~G5) Additional Codes: Date of Service ([id number]) Date of service: 08/23/24
== END 2024-08-23 08:54 | disposition home or self-care (01) ==
LOC: PC 08:54
PROVIDERS: PCP Nurse Practitioner Family; Visit Provider Preventive Medicine Occupational Medicine
DX: M54.16 Radiculopathy, lumbar region (principal)
CPT/HCPCS: 64483; 72100; J1100; Q9967

== ENCOUNTER 2024-11-21 02:23 | Outpatient (CLI) | payer BC, SELFPAY ==
--- NOTE | 2024-11-21 | DI.RAD_ITS ---
Exam(s) XR FOOT RT LIMITED EXAM: XR FOOT RT LIMITED CLINICAL HISTORY: BILAT FEET PAIN, FEELING OF BONE SPUR LT, ? EROSIONS, NUMBNESS RT FOOT. TECHNIQUE: 2D digital imaging was performed. Two views. COMPARISON: No exams were available for comparison FINDINGS: BONES: No acute fracture is present. No bony destructive lesion is seen. Large ossicle a base of 5th metatarsal. JOINTS: No dislocation present. No significant degenerative changes. No heel spurs. The plantar arch is maintained SOFT TISSUE: Normal. IMPRESSION: Unremarkable radiographs of the right foot. DATA REPOSITORY: RADIATION DOSE DELIVERED:
--- NOTE | 2024-11-21 | DI.RAD_ITS ---
Exam(s) XR FOOT LT LIMITED EXAM: XR FOOT LT LIMITED CLINICAL HISTORY: BILAT FOOT PAIN,? BONE SPUR LT PLANTAR SURFACE,NUMBNESS RT FOOT,. TECHNIQUE: 2D digital imaging was performed. Two views. COMPARISON: CR XR FOOT RT LIMITED from 11/21/2024 FINDINGS: BONES: No acute fracture is present. No bony destructive lesion is seen. No heel spurs. JOINTS: No dislocation present. No significant degenerative changes. Plantar arch is maintained. SOFT TISSUE: Normal. IMPRESSION: Unremarkable radiographs of the left foot. DATA REPOSITORY: RADIATION DOSE DELIVERED:
== END 2024-11-21 02:43 ==
LOC: DI 02:23
PROVIDERS: PCP Nurse Practitioner Family; Visit Provider Internal Medicine Rheumatology
DX: M05.79 Rheumatoid arthritis with rheumatoid factor of multiple sites without organ or systems involvement (principal)
CPT/HCPCS: 73620

== ENCOUNTER 2025-01-31 13:44 | Outpatient (CLI) | payer BC, SELFPAY ==
--- NOTE | 2025-01-31 06:00 | DI.RAD_ITS ---
Exam(s) XR PAIN CLINIC LUMBAR SP 2V EXAM: XR PAIN CLINIC LUMBAR SP 2V CLINICAL HISTORY: DX: Lumbar Radiculopathy TECHNIQUE: 2D and realtime digital imaging was performed. CONTRAST MATERIAL: Refer to procedure report. COMPARISON: CR XR LUMBAR SPINE COMP W FLEX/EX from 05/09/2024 FINDINGS: Fluoroscopy was provided for Dr. Gomez during the performance of a bilateral transforaminal epidural steroid injection. Please refer to the procedure report for complete details. Note is made of grade 2 spondylolisthesis of L5 on S1 Ka,r=16.7 mGy IMPRESSION: RADIATION DOSE DELIVERED: 0.0 0.0 0
[2025-01-31 13:45] VITALS: BP 139/88; PULSE 117; RESP 18; TEMP 36.7; O2SAT 98
[2025-01-31 14:21] VITALS: BP 162/118; PULSE 101; PULSE 103; RESP 20; O2SAT 97
[2025-01-31 14:22] VITALS: PULSE 112; RESP 18; O2SAT 99
[2025-01-31 14:30] VITALS: PULSE 109; PULSE 110; RESP 16; O2SAT 94
[2025-01-31 14:31] VITALS: BP 160/123; PULSE 104; PULSE 113; RESP 19; O2SAT 93
[2025-01-31 14:40] VITALS: PULSE 127; PULSE 129; RESP 27; O2SAT 93
[2025-01-31] MEDS: Omnipaque 240 MG/ML 50 ML BTL IJ (14:48)
[2025-01-31] MEDS: Nerve Block Tray 1 EACH MC (14:48)
[2025-01-31] MEDS: Dexamethasone Sod. Phos./Pres-Free 10 MG/ML VIAL IJ (14:49)
--- NOTE | 2025-02-05 12:46 | PDOC.PAIN ---
Date of service: 01/31/25 Time of Service: 14:00 Pain Managment Procedure Note Procedure Note Procedure Note: PROCEDURE NOTE BILATERAL L5 TRANSFORAMINAL EPIDURAL STEROID INJECTION Chief Complaint: Bilateral leg pain. Date of Service: January 31, 2025 Patient: Carolina Cota Provider: Alex Gomez DO, MPH Carolina Cota has been referred to the [facility] for a transforaminal epidural steroid injection. Pre-operative diagnosis: Lumbosacral Radiculopathy ICD-10 M54.17 Post-operative diagnosis: Same Pre-Procedure Pain: VAS= 8/10 Comments: I previously evaluated the patient in our clinic and their symptoms remain the same as they were at that time. She had >3 months of >50% pain improvement with her last bilateral L5 TFESIs Carolina was interviewed and the medical record reviewed. There were no medical, pharmacologic, radiographic or other structural contraindications to attempting a fluoroscopically-guided transforaminal lumbar epidural steroid injection. The risks, benefits, and potential side effects were reviewed with the patient. Risks include, but are not limited to, [id number] headache, infection, bleeding, nerve injury, spinal cord damage, allergic reaction, possible increase in symptoms over the ensuing 24 to 48 hours, paralysis, and . The patient appeared to understand, questions were answered to the patient’s satisfaction and the patient agreed to proceed. Once I obtained informed verbal consent, the printed consent form was signed by the patient and myself. A standard time-out procedure was performed. Carolina was placed in the prone position on the fluoroscopy table and automated blood pressure cuff, three lead EKG, and pulse oximeter were applied. The skin entry point for entering/approaching the left L5 space for the transforaminal epidural steroid injection was marked. Following thorough chlorhexadine preparation of the skin and draping, 2 ml of 1% lidocaine was infiltrated into the skin over the entry point and subcutaneous tissues. Under fluoroscopic guidance, in ipsilateral oblique view, a co-axial approach using a 3.5 22G spinal needle was advanced to the base of the left L5 pedicle. The needle was advanced to the superio-posterior aspect of the neural foramen under lateral view. Oblique and AP views were rechecked. Under AP and lateral views, 1 ml of Omnipaque-240 was injected while visualized with fluoroscopy. There was no evidence of intravascular or intrathecal uptake, the epidural space was delineated. Next 0.75 ml of preservative-free Dexamethasone (7.5 mg/ml) was injected after negative aspiration. This was followed by 1 ml of preservative-free 1% lidocaine. This exact procedure was repeated at the right L5 level. (48 mls of Omnipaque-240 was wasted) There was no unusual discomfort expressed by Carolina. The needle was withdrawn without difficulty. Carolina was observed and was without hemodynamic, neurologic, or allergic reactions. Fluoroscopic images were digitally archived. Carolina's vital signs were stable throughout the procedure and were as recorded in the docflowsheet by the nursing staff. If given, dosages of intravenous drugs for anxiolysis and analgesia were documented in MAR. Follow up plans and appointments were discussed with Carolina. Post procedure instruction was given as documented in nursing records and having met discharge criteria Carolina was discharged from the [facility]. COMMENTS: Post-procedure pain: VAS= 7/10. Carolina to contact [facility] as needed. If at least 50% improvement in pain and/or function for at least 3 months is achieved, this procedure can be repeated. I personally performed this entire procedure. ALEX GOMEZ DO, MPH ABPMR-subspecialty board certification in Pain Medicine [facility] Coding Conscious Sedation used for procedure: No CPT Codes: Transforaminal Lumbar/Sacral (includes fluoro) *BILATERAL* - [id number] ([id number]~G5) Additional Codes: Date of Service () Diagnoses: Lumbar radiculopathy
== END 2025-01-31 13:45 | disposition home or self-care (01) ==
LOC: PC 13:44
PROVIDERS: PCP Nurse Practitioner Family; Visit Provider Preventive Medicine Occupational Medicine
DX: M54.17 Radiculopathy, lumbosacral region (principal); M79.604 Pain in right leg; M79.605 Pain in left leg
CPT/HCPCS: 64483; 72100; J1100; Q9967